=== PATIENT | female | born 2000 | race African-American/Black ===

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

== ENCOUNTER 2023-06-11 13:48 | Emergency (ER) | payer BC, MEDICAID ==
[~2023-06-11] VITALS: Ht 167.6 cm; Wt 82.0 kg
[2023-06-11 13:50] VITALS: BP 137/68; TEMP 98.8; O2SAT 100
[2023-06-11 14:42] LABS: HEMATOCRIT. 39.6 % (36.0-48.0); MEAN CORPUSCULAR HGB CONC 32.8 g/dL (31.0-37.0); MEAN CORPUSCULAR VOLUME 88.5 fL (81.0-99.0); MEAN PLATELET VOLUME 8.2 fl (7.4-10.4); PLATELET 246 x1000/uL (130-400); RED BLOOD CELL COUNT 4.47 mill/uL (4.2-5.4); RED CELL DISTRIBUTION WIDTH 14.1 % (11.6-14.6); WHITE BLOOD COUNT 9.6 x1000/uL (4.5-11.0)
[2023-06-11 14:48] LABS: DIFFERENTIAL COMMENT 1
[2023-06-11 14:49] LABS: CHLORIDE 107 mEq/L (98-107); POTASSIUM 3.6 mEq/L (3.5-5.1); SODIUM 140 mEq/L (136-145)
[2023-06-11 14:50] LABS: CALCIUM 8.9 mg/dL (8.7-10.4); CARBON DIOXIDE 24 mEq/L (21-32)
[2023-06-11 14:55] LABS: CREATININE 0.8 mg/dL (0.6-1.0); GLUCOSE 127 mg/dL (70-105); UREA NITROGEN BLOOD 6 mg/dL (9-23)
[2023-06-11 15:05] LABS: CLARITY URINE CLOUDY (CLEAR); COLOR URINE YELLOW (YELLOW); GLUCOSE URINE NEGATIVE (NEGATIVE); KETONES URINE NEGATIVE (NEGATIVE); LEUKOCYTE ESTERASE URINE 1+ (NEGATIVE); NITRITE URINE NEGATIVE (NEGATIVE); OCCULT BLOOD URINE NEGATIVE (NEGATIVE); PH URINE 7.5 (4.5-8.0); PROTEIN URINE 1+ (NEGATIVE); SPECIFIC GRAVITY URINE 1.026 (1.005-1.030); UROBILINOGEN URINE 0.2 E.U./dL (0.2-1.0)
[2023-06-11] MEDS: ONDANSETRON 4MG ODT PO STA (15:05)
[2023-06-11 15:16] LABS: ALBUMIN 4.6 g/dL (3.2-4.8); PROTEIN TOTAL 8.1 g/dL (6.0-8.3)
[2023-06-11 15:17] LABS: ALANINE AMINOTRANSFERASE 19 IU/L (10-49); ASPARTATE AMINOTRANSFERASE 17 IU/L (<34); BILIRUBIN TOTAL 0.5 mg/dL (0.1-1.0)
[2023-06-11 15:25] LABS: BACTERIA URINE 2+; SQUAMOUS EPITHELIAL CELL URINE 2+ /lpf (RARE/1+); YEAST URINE NONE SEEN
[2023-06-11 15:26] LABS: MUCUS URINE 1+ /lpf (< = 2+)
[2023-06-11] MEDS: SODIUM CHLORIDE 0.9% 1,000 ML IV ONE (16:28)
[2023-06-11 17:44] VITALS: PULSE 78; RESP 16
[2023-06-11 17:55] LABS: PLATELET ESTIMATE NORMAL
== END 2023-06-11 17:46 | disposition home or self-care (01) ==
LOC: ER 13:48
DX: R11.2 Nausea with vomiting, unspecified (principal); K92.1 Melena
CPT/HCPCS: 80053; 81003; 81025; 85025; 36415; 96360; 99283; Q0162; J7030; Z7610